=== PATIENT | female | born 1975 | race Caucasian/White ===

== ENCOUNTER 2016-06-28 14:25 | Emergency (ER) | payer SELFPAY ==
[~2016-06-28] VITALS: Ht 160 cm; Wt 88.6 kg
[2016-06-28 14:29] VITALS: TEMP 99.1
[2016-06-28] MEDS ORDERED: GLUCOPHAGE1000 MG PO (14:33)
[2016-06-28] MEDS ORDERED: NOVOLOGMIX70/30 SQ (14:33)
[2016-06-28] MEDS ORDERED: LEVEMIR100 U/ML SQ (14:34)
[2016-06-28 15:53] LABS: PH 5 (5-8); SQUAMOUS EPITHELIAL 0-2 /hpf; URINE APPEARANCE Cloudy; URINE BACTERIA Rare /hpf; URINE BILIRUBIN Negative (NEGATIVE); URINE BLOOD 3+ (NEGATIVE); URINE KETONE Trace (NEGATIVE); URINE RBC >50 /hpf; URINE UROBILINOGEN >=4.0 mg/dL (NEGATIVE); URINE WBC >50 /hpf
[2016-06-28 15:54] LABS: URINE COLOR Red
[2016-06-28 15:56] LABS: URINE GLUCOSE 3+ (NEGATIVE)
[2016-06-28 17:08] LABS: ALBUMIN 4.3 gm/dL (3.5-5.0); CALCIUM 9.2 mg/dL (8.4-10.2); CREATININE, serum 0.41 mg/dL (0.52-1.25); POTASSIUM 4.2 mmol/L (3.4-5.0); TOTAL PROTEIN 8.1 gm/dL (6.4-8.2)
[2016-06-28 17:11] LABS: BASO % 0.3 % (0.0-2.0); EOS # 0.1 (0.0-0.7); EOS % 0.8 % (0-4.0); GRAN # 10.3 (1.4-6.5); GRAN % 81.7 % (42.2-75.2); HEMATOCRIT 42.4 % (37.0-47.0); HEMOGLOBIN 14.5 g/dl (12.5-16.0); LYMPH # 1.6 (1.2-3.4); MEAN CELL VOLUME 90 fl (80.0-100.0); MEAN CORPUSCULAR HEMOGLOBIN 31 pg (27.0-31.0); MEAN CORPUSCULAR HGB CONC 34 g/dl (33.0-37.0); MEAN PLATELET VOLUME 10.6 fl (7.4-10.4); MONO # 0.5 (0.1-0.6); MONO % 3.8 % (1.7-9.3); PLATELET COUNT 280 K/mm3 (130-400); RED BLOOD COUNT 4.74 M/mm3 (4.10-5.30); REDCELL DISTRIBUTION WIDTH-CV 13.2 % (11.5-14.5); WHITE BLOOD COUNT 12.6 K/mm3 (4.8-10.8)
[2016-06-28] MEDS ORDERED: ZOFRAN8 MG PO (17:35)
[2016-06-28] MEDS ORDERED: LEVAQUIN 750MG750 M1 PO (17:35)
[2016-06-28] MEDS ORDERED: ULTRAM 50MG TAB50 MG PO (17:35)
[2016-06-28 17:36] VITALS: BP 162/97; PULSE 88
[2016-06-28] MEDS ORDERED: MACROBID 1100 MG/CAP PO (17:57)
== END 2016-06-28 18:14 | disposition home or self-care (01) ==
LOC: COL.ER 14:25
PROVIDERS: Emergency Medicine; Nurse Practitioner
DX: N12 Tubulo-interstitial nephritis, not specified as acute or chronic (principal); B96.20 Unspecified Escherichia coli [E. coli] as the cause of diseases classified elsewhere; E11.9 Type 2 diabetes mellitus without complications; Z79.4 Long term (current) use of insulin
CPT/HCPCS: J0696; J1170; J2405; J3010; J7030